=== PATIENT | female | born 1990 | race Hispanic/Latino ===

== ENCOUNTER 2021-02-10 00:24 | Emergency (ER) | payer OTHER ==
[~2021-02-10] VITALS: Ht 157.5 cm; Wt 72.6 kg
[2021-02-10 00:56] LABS: BASOPHILS % (AUTO) 0.4 % (0.0-5.0); EOSINOPHILS % (AUTO) 0.6 % (0.0-8.0); LYMPHOCYTES % (AUTO) 11.3 % (21.0-51.0); MEAN CORPUSCULAR HEMOGLOBIN 28.9 pg (27.0-33.0); MEAN CORPUSCULAR HGB CONC 32.7 g/dL (32.0-36.0); MEAN CORPUSCULAR VOLUME 88.5 fL (79-99); MONOCYTES % (AUTO) 5.7 % (3.0-13.0); NEUTROPHILS % (AUTO) 81.6 % (40.0-77.0); PLATELET COUNT (AUTO) 284 K/uL (130-400); RED BLOOD CELL COUNT(AUTO) 4.18 MIL/uL (4.00-5.50); RED CELL DISTRIBUTION WIDTH 12.5 % (11.0-15.5); WHITE BLOOD COUNT (AUTO) 16.6 K/uL (4.8-10.8)
[2021-02-10 00:57] LABS: APPEARANCE,URINE Cloudy (CLEAR); BILIRUBIN,URINE Negative (NEGATIVE); COLOR,URINE Yellow (YELLOW); GLUCOSE, URINE (UA) Negative (NEGATIVE); KETONES,URINE Negative (NEGATIVE); LEUKOCYTE ESTERASE ,URINE Large (NEGATIVE); NITRATE,URINE Negative (NEGATIVE); OCCULT BLOOD,URINE Moderate (NEGATIVE); PH,URINE 6.5 (5.0-8.0); PROTEIN,URINE POS 1+ mg/dL (NEGATIVE)
[2021-02-10] MEDS ORDERED: ONDANSETRON 4MG INJ IVP ONE (01:00)
[2021-02-10] MEDS ORDERED: KETOROLAC 30MG VIAL (30MG/ML) IV ONE (01:00)
[2021-02-10 01:02] LABS: HCG,QUAL RESULT NEGATIVE (NEGATIVE)
[2021-02-10 01:06] LABS: CREATININE 0.8 mg/dL (0.5-1.5); POTASSIUM 3.4 mmol/L (3.5-5.1)
[2021-02-10 01:11] LABS: BILIRUBIN,TOTAL 0.1 mg/dL (0.2-1.0); TOTAL PROTEIN, SERUM 8.5 g/dL (6.0-8.3)
[2021-02-10 01:36] LABS: BACTERIA,URINE Few /HPF (None Seen)
[2021-02-10 01:37] LABS: WBC,URINE 26-50 /HPF (0-1)
[2021-02-10] MEDS ORDERED: CEFTRIAXONE 1G VIAL ONE (01:59)
[2021-02-10] MEDS ORDERED: CEFTRIAXONE 1G VIAL IVP ONE (02:00)
[2021-02-10] MEDS ORDERED: CEPH500B PO (02:53)
[2021-02-10] MEDS ORDERED: IBUP-2077 PO (02:55)
[2021-02-10] MEDS ORDERED: PHEN-847 PO (02:55)
[2021-02-10 03:16] VITALS: BP 106/60
== END 2021-02-10 03:28 | disposition home or self-care (01) ==
LOC: EDH 00:24
DX: N39.0 Urinary tract infection, site not specified (principal); N12 Tubulo-interstitial nephritis, not specified as acute or chronic; Z88.1 Allergy status to other antibiotic agents; Z88.8 Allergy status to other drugs, medicaments and biological substances; Z98.890 Other specified postprocedural states
CPT/HCPCS: 36415; 74176; 80053; 81001; 81025; 83690; 85025; 87077; 87088; 87186; 96374; 96375; 99284; J0696; J1885; J2405